=== PATIENT | female | born 2005 | race Caucasian/White ===

== ENCOUNTER 2024-03-10 23:20 | Emergency (ER) | payer BC ==
[~2024-03-10] VITALS: Ht 162.6 cm; Wt 42.7 kg
[2024-03-10 23:50] VITALS: TEMP 99.6
[2024-03-11] MEDS ORDERED: Ondansetron 4 MG/2 ML VIAL IV ONE (00:45)
[2024-03-11 00:47] LABS: BASO % 0.2 % (0.0-2.0); EOS # 0.1 K/mm3 (0.0-0.7); EOS % 0.6 % (0.0-4.0); GRAN # 8.1 K/mm3 (1.4-6.5); GRAN % 86.9 % (42.2-75.2); HEMATOCRIT 39.8 % (35.0-45.0); HEMOGLOBIN 13.6 g/dl (12.0-15.0); LYMPH # 0.7 K/mm3 (1.2-3.4); MEAN CELL VOLUME 91 fl (80.0-95.0); MEAN CORPUSCULAR HEMOGLOBIN 31 pg (26-32); MEAN CORPUSCULAR HGB CONC 34 g/dl (33.0-37.0); MEAN PLATELET VOLUME 8.2 fl (7.4-10.4); MONO # 0.4 K/mm3 (0.1-0.6); PLATELET COUNT 296 K/mm3 (130-400); RED BLOOD COUNT 4.38 M/mm3 (4.10-5.30)
[2024-03-11 01:04] LABS: URINE APPEARANCE Clear (CLEAR/HAZY); URINE BLOOD TRACE-INTACT (NEGATIVE); URINE COLOR Yellow (YELLOW); URINE GLUCOSE Negative (NEGATIVE); URINE KETONE Negative (NEGATIVE); URINE NITRATE Negative (NEGATIVE); URINE PROTEIN(semi-quant) Negative (NEGATIVE); URINE UROBILINOGEN 0.2 E.U/dL (0.2-1.0)
[2024-03-11 01:06] LABS: COLLECTION METHOD CLEAN CATCH
[2024-03-11 01:07] LABS: ALBUMIN 4.1 g/dL (3.5-5.0); BILIRUBIN,TOTAL 0.7 mg/dL (0.2-1.2); CALCIUM 9.4 mg/dL (8.4-10.2); CREATININE, serum 0.82 mg/dL (0.57-1.11); POTASSIUM 3.7 mEq/L (3.5-4.5)
[2024-03-11] MEDS ORDERED: NS 1,000 ML IV ONE (01:30)
[2024-03-11] MEDS ORDERED: Ketorolac 15 MG/ML VIAL IV ONE (01:30)
[2024-03-11 02:32] VITALS: BP 96/61; PULSE 88
== END 2024-03-11 02:32 | disposition home or self-care (01) ==
LOC: COL.ER 23:20
PROVIDERS: Emergency Medicine
DX: B34.9 Viral infection, unspecified (principal)
CPT/HCPCS: J1885; J2405; J7030

== ENCOUNTER 2024-05-09 21:09 | Emergency (ER) | payer BC ==
[~2024-05-09] VITALS: Ht 162.6 cm; Wt 42.7 kg
[2024-05-09 21:14] VITALS: BP 127/89; TEMP 97.1
[2024-05-09] MEDS ORDERED: AMOXICILLIN 8751 TAB PO (21:28)
[2024-05-09] MEDS ORDERED: Amoxicillin/Clavulanate K+ 875/125 MG TAB PO ONE (21:30)
[2024-05-09] MEDS ORDERED: Ciprofloxacin 0.3% Ophth Soln 5 ML BOTTLE OT ONE (21:30)
[2024-05-09 21:36] VITALS: PULSE 70
== END 2024-05-09 21:38 | disposition home or self-care (01) ==
LOC: COL.ER 21:09
DX: H66.92 Otitis media, unspecified, left ear (principal); H72.92 Unspecified perforation of tympanic membrane, left ear; H65.91 Unspecified nonsuppurative otitis media, right ear; Z88.2 Allergy status to sulfonamides